=== PATIENT | male | born 1975 | race Caucasian/White ===

== ENCOUNTER 2017-01-17 15:46 | Emergency (ER) | payer MEDICAID, OTHER ==
[~2017-01-17] VITALS: Ht 167.6 cm; Wt 98.0 kg
[2017-01-17 15:50] VITALS: Ht 167.6 cm; Wt 98.0 kg
[2017-01-17] MEDS ORDERED: LIDOCAINE 2% (MDV) 20 ML INJ INJ ONE (16:30)
[2017-01-17] MEDS ORDERED: ACET325T33 PO (17:40)
[2017-01-17 18:37] VITALS: BP 151/89; PULSE 58; RESP 16; TEMP 98.5
--- NOTE | 2017-01-22 01:12 | ERA ---
ER Documentation Chief Complaint Date/Time DATE: 01/22/17 TIME: 01:08 Chief Complaint Laceration to left index finger HPI This is a 41-year-old male presenting with a laceration of the left finger that he sustained while cooking. Patient denies any numbness, tingling, discharge or loss of motion. Patient's tetanus status is up-to-date. Patient is right- handed. Patient has no other complaints and denies injury to any other areas of the body. ROS All systems reviewed and are negative except as per history of present illness. Medications Home Meds Active Scripts Acetaminophen* (Tylenol*) 325 Mg Tablet, 1 TAB PO Q6 Y for PAIN AND OR ELEVATED TEMP, #20 TAB Prov:MARY RALPH PA-C 01/17/17 Allergies Allergies: Coded Allergies: No Known Allergy (Unverified , 01/17/17) PMhx/Soc Medical and Surgical Hx: pt denies Surgical Hx Hx Cardiac Disorders: Yes (HTN) Physical Exam Physical Exam Const: Well-appearing overweight 41-year-old male Head: Atraumatic Eyes: Normal Conjunctiva ENT: Normal External Ears, Nose and Mouth. Neck: Full range of motion..~ No meningismus. Resp: Clear to auscultation bilaterally Cardio: Regular rate and rhythm, no murmurs Abd: Soft, non tender, non distended. Normal bowel sounds Skin: Laceration 2 seconds phalanx. With the laceration is 2 cm. No petechiae or rashes Back: No midline or flank tenderness Ext: No cyanosis, or edema Neur: Awake and alert Psych: Normal Mood and Affect Results 24 hrs Current Medications Medications (Trade) Dose Ordered Sig/Daisy Route PRN Reason Start Time Stop Time Status Last Admin Dose Admin Lidocaine (Xylocaine 2% (Mdv) 20 ml) 20 ml ONCE ONCE INJ 01/17/17 16:30 01/17/17 16:31 DC Procedures/MDM Patient presents with a clean 2 cm laceration horizontally cut on the dorsal side of the second left digit. Patient's tetanus status is up-to-date. Range of motion is intact. Neurovascularly intact bilaterally before and after the procedure. The laceration was irrigated with normal saline and cleaned by the nursing staff. Iodine was used to sterilize the affected area. Lidocaine without epi 3-1/2 mL for digital block was used without complication and with adequate anesthesia to the area. There were no foreign bodies found with exploration. The laceration was then repaired with 4-0 Prolene. 3 simple sutures were placed without complication. The wound was well approximated and there was adequate eversion. There were no complications during the proceeder. Neurovascular status was reevaluated post procedure, and remained unchanged. They were then educated on wound care and warning signs of complications, and instructed to follow up in 2 days for a wound check. They verbally stated that they understand the plan of management. I have a very low suspicion at this time for infection, compartment syndrome, fracture or neurovascular compromise. The area was then washed and bacitracin applied by the nursing staff. Sterile gauze was used to cover the area. The patient is otherwise healthy and did not sustain a dirty or deep wound; thus , at this time antibiotics are not necessary. The patient will however be discharged with acetaminophen for discomfort/pain relief. Patient will be discharged home with instructions and return precautions for infection. Departure Diagnosis: Primary Impression: Laceration Condition: Stable Patient Instructions: Laceration, Hand Additional Instructions: You were seen in the emergency department for your laceration which has been closed. Your wound has been cleaned and covered with antibiotic ointment. Please keep this dressing on for 12 hours. After 12 hours take the dressing down and gently clean the wound with ONLY soap and water. If you were given antibiotics, complete the course of treatment as prescribed. Look for signs of infection such as increasing redness, swelling, pain or drainage of pus (yellow/ green fluid). If you see signs of infection, please return to the emergency department immediately. If there are no signs of infection, cover your wound with antibiotic ointment and reapply a dressing. You will form a scar. To keep from scarring too dark, keep your wound covered and out of the sun for the next 6-12 months. Consider using OTC anti-scar creams such as Mederma. Return to the ED for a wound check in 2 days and again for suture removal in 10-14 days. MARY RALPH PA-C Jan 22, 2017 01:12
== END 2017-01-17 18:39 | disposition home or self-care (01) ==
LOC: FTE 15:46
DX: S61.211A Laceration without foreign body of left index finger without damage to nail, initial encounter (principal); I10 Essential (primary) hypertension; W26.9XXA Contact with unspecified sharp object(s), initial encounter; Y92.9 Unspecified place or not applicable
CPT/HCPCS: 12001; Z7610

== ENCOUNTER 2017-01-31 11:19 | Emergency (ER) | payer MEDICAID ==
[~2017-01-31] VITALS: Ht 172.7 cm; Wt 97.5 kg
[~2017-01-31 11:19] MED LIST: ACET325T33 PO
[2017-01-31 11:21] VITALS: Ht 172.7 cm; Wt 97.5 kg
--- NOTE | 2017-01-31 11:47 | ERD ---
ER Documentation Chief Complaint Date/Time DATE: 01/31/17 TIME: 11:47 Chief Complaint SUTURE REMOVAL LEFT INDEX FINGER HPI This is a 41-year-old suture removal of sutures he had placed 2 weeks ago. Patient states he was instructed to come back in 2 weeks. Denies any fevers or chills. ROS All systems reviewed and are negative except as per history of present illness. Medications Home Meds Active Scripts Acetaminophen* (Tylenol*) 325 Mg Tablet, 1 TAB PO Q6 Y for PAIN AND OR ELEVATED TEMP, #20 TAB Prov:MARY RALPH PA-C 01/17/17 Allergies Allergies: Coded Allergies: No Known Allergy (Unverified , 01/17/17) PMhx/Soc Medical and Surgical Hx: pt denies Surgical Hx Hx Cardiac Disorders: Yes (HTN) Hx Alcohol Use: No Hx Substance Use: No Hx Tobacco Use: No Smoking Status: Never smoker Physical Exam Vitals Vital Signs Date Time Temp Pulse Resp B/P Pulse Ox O2 Delivery O2 Flow Rate FiO2 01/31/17 11:21 98.0 79 18 143/92 99 Physical Exam Const: NAD Head: Atraumatic Eyes: Normal Conjunctiva ENT: Normal External Ears, Nose and Mouth. Neck: Full range of motion..~ No meningismus. Resp: Clear to auscultation bilaterally Cardio: Regular rate and rhythm, no murmurs Skin: Left index finger with evidence of 3 sutures placed. Wound well healed well approximated. No erythema or warmth. Back: No midline or flank tenderness Ext: Left hand index finger full active range of motion. Pulses 2+. Distal neurovascular intact. Good cap refill. Neur: Awake and alert Psych: Normal Mood and Affect Procedures/MDM This a 5-year-old male who presents to the emergency department today for suture removal of a wound he sustained approximately 2 weeks ago while cutting meat with a knife. On physical exam patient has 3 sutures placed. He is afebrile and otherwise well-appearing. He has full active range of motion at his joint. There is no erythema or warmth. Low suspicion for sepsis, cellulitis or deep space infection. Left hand index finger 3 sutures removed. Full active range of motion of finger. Pulses 2+. Distal neurovascularly intact. At this time the patient is stable for discharge and outpatient management. Patient should follow up with their PCP in the next 1-2 days. They may return to the emergency department sooner for any persistent or worsening of symptoms. Patient understood and agreed with the plan. Departure Diagnosis: Primary Impression: Encounter for removal of sutures Condition: Fair Patient Instructions: Suture Removal, No Complication [facility]: [facility] Usted se lowe hecho un examen mdico de control que le indica que no est en minnie condicin que requiera tratamiento urgente en el Departamento de Emergencia. Un estudio ms profundo y el tratamiento de ruiz condicin pueden esperar sin ningn riesgo hasta que usted sea atendida/o en el consultorio de ruiz mdico o minnie cl joy. Es responsabilidad suya arreglar minnie thao para el seguimiento del sierra. MANEJO DE CONDICIONES NO URGENTES EN EL FUTURO 1) Si usted tiene un mdico de atencin primaria: Usted debera llamar a ruiz mdico de atencin primaria antes de venir al departamento de emergencia. Despus de las horas de consultorio, ruiz doctor o ruiz asociado/a est disponible por telfono. El mdico o enfermero de pepe en el servicio telefnico puede asesorarle por meagn medio para atender el problema, o sierra contrario se puede programar minnie thao. 2) Si usted no tiene un mdico de atencin primaria: Llame al mdico o clnica de referencia que aparece abajo bria las horas de consultorio para hacer minnie thao para que le vean. CLINICAS: [facility] [phone] [facility] [phone] [facility] [phone] [facility] [facility] [phone] [address] [place] [phone] [facility] [phone] [address] Additional Instructions: Llame al doctor MAANA y tomasa minnie THAO PARA DENTRO DE 1-2 AGRAWAL.Dgale a la secretaria que nosotros le instruimos hacer esta thao.Avise o llame si ruiz condicin se empeora antes de la thao. Regresa aqui si peor o no mejor. PAULINA SETH PA-C Jan 31, 2017 11:47
== END 2017-01-31 13:01 | disposition home or self-care (01) ==
LOC: FTE 11:19
DX: Z48.02 Encounter for removal of sutures (principal); I10 Essential (primary) hypertension
CPT/HCPCS: 99281